=== PATIENT | male | born 1950 | race Caucasian/White ===

== ENCOUNTER 2025-01-15 14:56 | Emergency (ER) | payer MEDICARE ==
[~2025-01-15] VITALS: Ht 160 cm; Wt 52.2 kg
[2025-01-15] MEDS ORDERED: TRAZ50 PO (15:06)
== END 2025-01-15 15:49 | disposition home or self-care (01) ==
LOC: ER 14:56
DX: K64.4 Residual hemorrhoidal skin tags (principal); Z79.899 Other long term (current) drug therapy
CPT/HCPCS: 99283